=== PATIENT | male | born 1985 | race Hispanic/Latino ===

== ENCOUNTER 2018-06-20 17:12 | Inpatient (IN) | payer MEDICAID, OTHER ==
[2018-06-20 17:12] VITALS: BMI 23.7
--- NOTE | 2018-06-20 18:28 | C.PDOC ---
History Of Present Illness 33 year old male presents to the ED requesting heroin detox. Patient states his last use was at 0700 today. He denies suicidal/homicidal ideation and does not have any active physical complaints at this time. Ambulatory, not in any a pparent distress. Time Seen by Provider: 06/20/18 18:06 Chief Complaint (Nursing): Substance Abuse History Per: Patient History/Exam Limitations: no limitations Onset/Duration Of Symptoms: Hrs Current Symptoms Are (Timing): Still Present Suicide/Self Injury Attempted (Context): None Modifying Factor(s): Other (heroin) Severity: None Associated Symptoms: denies: Suicidal Thoughts, Suicidal Plan Additional History Per: Patient Past Medical History Reviewed: Historical Data, Nursing Documentation, Vital Signs Vital Signs: Last Vital Signs Temp 98 F 06/20/18 17:37 Pulse 92 H 06/20/18 17:37 Resp 18 06/20/18 17:37 BP 103/71 06/20/18 17:37 Pulse Ox 96 06/20/18 17:37 - Medical History PMH: Bipolar Disorder, Cardia Arrhythmia (skip beat), Depression, Seizures (New onset on admission) Denies: Anemia, Asthma, Bronchitis, CHF, COPD, Diabetes, Emphysema, Hepatitis, HIV, HTN, Hypercholesterolemia, Mitral Valve Prolapse, Peripheral Edema, Pneumonia, Chronic Kidney Disease, Sexually Transmitted Disease, Sleep Apnea Surgical History: No Surg Hx Denies: Coronary Stent, Pacemaker - [facility] Procedures CLOSURE SKIN & SUBCUTANEOUS NEC (11/07/13) INJECT/INFUSE NEC (11/07/13) PSYCHIA INTERV/EVAL NEC (11/07/13) Family History: States: Unknown Family Hx - Social History Hx Tobacco Use: Yes (10 per day) Hx Alcohol Use: No Hx Substance Use: Yes - Immunization History Hx Tetanus Toxoid Vaccination: No Hx Influenza Vaccination: No Hx Pneumococcal Vaccination: No Review Of Systems Psych: Positive for: Other (heroin detox ). Negative for: Suicidal ideation Physical Exam - Physical Exam Appears: Non-toxic, No Acute Distress Skin: Normal Color, Warm, Dry Head: Atraumatic, Normacephalic Eye(s): bilateral: PERRL Nose: No Flaring, No Discharge Oral Mucosa: Moist Neck: Trachea Midline, No Midline Cervical Tenderness, No Paracervical Tenderness, No Step Off Deformity, Supple Chest: Symmetrical, No Deformity, No Tenderness Cardiovascular: Rhythm Regular, No Murmur, No JVD Respiratory: No Decreased Breath Sounds, No Accessory Muscle Use, No Rales, No Rhonchi, No Stridor, No Wheezing Gastrointestinal/Abdominal: Soft, No Tenderness, No Distention, No Guarding Back: No Vertebral Tenderness, No Paraspinal Tenderness Extremity: Normal ROM, No Tenderness, Capillary Refill (less than 2 seconds ) Neurological/Psych: Oriented x3, Normal Speech, Normal Cognition ED Course And Treatment - Laboratory Results Result Diagrams: 06/20/18 21:52 06/20/18 21:52 Lab Interpretation: No Acute Changes O2 Sat by Pulse Oximetry: 96 (on RA) Pulse Ox Interpretation: Normal Progress Note: Pt was seen by police worker, case discussed with , admission to detox accepted. Pt remained stable during the ED evaluation. Disposition - Disposition Disposition: HOSPITALIZED Disposition Time: 22:28 Condition: STABLE Forms: [facility] ([facility]) - Clinical Impression Clinical Impression: Opioid dependence - PA / [employer] / Resident Statement MD/DO has reviewed & agrees with the documentation as recorded. - Scribe Statement The provider has reviewed the documentation as recorded by the Scribe (Kanwal Hartman) All medical record entries made by the Scribe were at my direction and personally dictated by me. I have reviewed the chart and agree that the record accurately reflects my personal performance of the history, physical exam, medical decision making, and the department course for this patient. I have also personally directed, reviewed, and agree with the discharge instructions and disposition.
[2018-06-20 22:05] LABS: URINE BILIRUBIN NEGATIVE (NEGATIVE); URINE BLOOD 1+ (NEGATIVE); URINE CLARITY Hazy (Clear); URINE COLOR Yellow (YELLOW); URINE GLUCOSE (UA) NORMAL (Normal); URINE LEUKOCYTE ESTERASE NEG Leu/uL (Negative); URINE PROTEIN NEGATIVE (NEGATIVE); URINE UROBILINOGEN NORMAL mg/dL (0.2-1.0)
[2018-06-20 22:06] LABS: BASO % 0.7 % (0.0-2.0); EOS # 0.2 K/uL (0.0-0.7); EOS % 2.2 % (0.0-4.0); HEMOGLOBIN 12.3 g/dL (12.0-18.0); LYMPH # 1.7 K/uL (1.0-4.3); LYMPH % 23.9 % (20.0-40.0); MEAN CELL VOLUME 82.7 fL (80.0-94.0); MEAN CORPUSCULAR HGB CONC 32.7 g/dL (33.0-37.0); MEAN PLATELET VOLUME 8.1 fL (7.2-11.7); MONO # 0.5 K/uL (0.0-0.8); MONO % 7.4 % (0.0-10.0); NEUT # 4.8 K/uL (1.8-7.0); NEUT % 65.8 % (50.0-75.0); RBC 4.55 Mil/uL (4.40-5.90); RED CELL DISTRIBUTION WIDTH 15.9 % (11.5-14.5); WHITE BLOOD COUNT 7.3 K/uL (4.8-10.8)
[2018-06-20 22:16] LABS: BARBITURATES, UR NEGATIVE (NEGATIVE); BENZODIAZEPINES, UR NEGATIVE (NEGATIVE); OPIATES, UR POSITIVE (NEGATIVE); PHENCYCLIDINE, UR NEGATIVE (NEGATIVE)
[2018-06-20 22:18] LABS: ALB/GLOB RATIO 1.2 (1.0-2.1); ALBUMIN 4.3 g/dL (3.5-5.0); ALT/SGPT 55 U/L (21-72); AST/SGOT 32 U/L (17-59); BLOOD UREA NITROGEN 11 mg/dL (9-20); CALCIUM 9.1 mg/dl (8.6-10.4); GFR NON-AFRICAN AMERICAN > 60
--- NOTE | 2018-06-21 00:53 | PCM.BM ---
<Leigh Ann Martinez - Last Filed: 06/21/18 00:51> Treatment Plan Problems - Problems identified on initial assessmt Denial Date Initiated: 06/21/18 Time Initiated: 00:52 Assessment reference: NA Status: Active Defensive Coping Date Initiated: 06/21/18 Time Initiated: 00:52 Assessment reference: NA Status: Active Hopelessness Date Initiated: 06/21/18 Time Initiated: 00:52 Assessment reference: NA Status: Active Treatment assets and liabiliti Patient Assests: ADL independent Patient Liabilities: substance abuse - Milieu Protocol Maintain good personal hygiene: daily Encourage regular showers, daily Remind patient to perform daily oral care, daily Assist patient to perform ADL's Maintain personal safety: every shift Educate patient to report safety concerns to staff, every shift Monitor environment for contraband/sharps Medication safety: Monitor for expected outcome, potential side effects: every shift, Assess barriers to learning: every shift, Assess readiness for medication education: every shift <Georgette Waggoner - Last Filed: 06/24/18 23:28> - Diagnosis (1) Opioid dependence Status: Acute Interventions: 06/22/18 13:28 * Assess 7x/week regarding severity of withdrawal * Educate regarding risks, benefits, side effects and alternatives of medications * Use Motivational Interviewing for abstinence * Use CBT for relapse prevention * Medication management for withdrawal symptoms * Encourage medication assisted treatment *
--- NOTE | 2018-06-21 11:28 | PCM.PSYCH ---
Initial Psychiatric Evaluation - Initial Psychiatric Evaluation Type of Admission: Voluntary Legal Status: Capacity History of Present Illness and Precipitating Events: 33 yo male pt currently unemployed and living with his mother in [place] presents for detox from heroin. Pt has been using 20 bags a day for the past 3 years on and off. The longest he has been clean was 5 months, without using a detox or rehab program. He continues to use drugs due to social influences he says. He has previously attended a rehab/detox program and attended NA meetings. He claims he found the suboxone was not holding him over during detox but he has not used it for m aintenance. Pt admits to smoking 1 ppd, smoking marijuana occasionally, and drinking alcohol ocassionally. Psych Hx: Pt diagnosed with severe anxiety and insomnia. His primary care doctor, Dr. Erich Galeana in [place], prescribed him Xanax 1mg 3x a day which he has been taking for the past year. He had been overusing at times. No seizures. Pt agrees to come off the sedative hypnotics as well. Pt currently denies any SI, HI. PMHx: none PSHx: none Family hx: anxiety Current Medications: Active Medications Generic Name Dose Route Start Last Admin Trade Name Freq PRN Reason Stop Dose Admin Al Hydrox/Mg Hydrox/Simethicone 30 ml 06/21/18 09:49 Maalox 30 Ml PO TID PRN Indigestion / Heartburn Clonidine HCl 0.1 mg 06/21/18 09:49 Catapres PO Q4 PRN COWS Score More or Equal to 5 Hydroxyzine HCl 50 mg 06/21/18 09:55 Atarax PO Q6H PRN Anxiety Ibuprofen 600 mg 06/21/18 09:55 Motrin Tab PO Q6H PRN Pain, moderate (4-7) Loperamide HCl 2 mg 06/21/18 09:49 Imodium PO Q8 PRN Diarrhea Methadone HCl 20 mg 06/21/18 10:00 06/21/18 10:26 Methadone PO 06/26/18 09:59 20 mg Q24H ALDAIR Administration Taper Ondansetron HCl 4 mg 06/21/18 09:49 Zofran Tab PO Q8 PRN Nausea/Vomiting Trazodone HCl 100 mg 06/21/18 09:55 Desyrel PO HS PRN Insomnia Past Psychiatric History - Past Psychiatric History Previous Treatment History: Intensive Outpatient Pertinent Medical Hx (Current Medical&Sleep Prob, Allergies): Allergies Allergy/AdvReac Type Severity Reaction Status Date / Time No Known Allergies Allergy Verified 10/16/17 20:41 QUEtiapine [SEROquel] 1 tab PO DAILY 11/05/17 ALPRAZolam [Xanax] 1 mg PO TID 11/06/17 QUEtiapine [SEROquel] 100 mg PO HS 06/20/18 Review of Systems - Neurological Neurological: UNREMARKABLE - Psychiatric Psychiatric: Anhedonia, Anxiety, Difficulty Concentrating, Mood Swings, Panic Attacks. absent: Hallucinations, Homicidal Ideation, Paranoia, Suicidal Ideation Mental Status Examination - Personal Presentation Personal Presentation: Looks stated age - Affect Affect: Constricted - Motor Activity Motor Activity: Calm - Reliability in Providing Information Reliability in Providing Information: Good - Speech Speech: Organized - Mood Mood: Depressed (mild), Anxious - Formal Thought Process Formal Thought Process: No Impairment - Cognitive Functions Orientation: Person, Place, Situation, Time Sensorium: Alert Attention/Concentration: Easily distracted Estimate of Intelligence: Average Judgement: Intact, as evidence by: Insight regarding need for hospitalization Memory: Recent intact, as evidence by: Ability to recall events of the day, Remote intact, as evidenced by: Abilit to recall sig. 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 All risks, benefits and alternatives of the meds discussed and the pt agreed and understood. Attend groups and activities Supportive therapy and psychoeducation PR for abstinence CBT for relapse prevention Encourage MAT Refer to rehab or IOP, and self-help groups Teach healthy lifestyle methods, i.e. diet, exercise, meditation Smoking cessation with PR Nicotine patch if needed 33 min Projected ELOS: 4-5 days Prognosis: good w treatment - Smoking Cessation Smoking Cessation Initiated: Yes
[2018-06-21] MEDS: Aluminum Hydroxide/Magnesium Hydroxide Susp (30 mL) PO PRN (17:03)
[2018-06-22] MEDS: Aluminum Hydroxide/Magnesium Hydroxide Susp (30 mL) PO PRN ×2 (11:31→17:45)
--- NOTE | 2018-06-22 12:06 | PCM.PYCHPN ---
Psychiatric Progress Note - Psychiatric Progress Note Patient seen today, length of contact: 18 min Patient Chief Complaint: "Still sick" Problems Identified/Issues Discussed: The pt is seen, chart reviewed, case is discussed with staff. The pt is compliant with medications and reports no side-effects. Symptoms are improving but needs more time to stabilize and to avoid relapse. Pt attends groups and activities. Support given, psycho-education provided. After care discussed. Medication Change: Yes (detox changes daily) Medical Record Reviewed: Yes Mental Status Examination - Cognitive Function Orientation: Person, Place, Situation, Time Memory: Intact Attention: WNL Concentration: Poor Association: WNL Fund of Knowledge: WNL - Mood Mood: Depressed (mild), Anxious - Affect Affect: Constricted - Speech Speech: Appropriate - Formal Thought Process Formal Thought Process: No Impairment - Suicidal Ideation Suicidal Ideation: No - Homicidal Ideation Homicidal Ideation: No Goal/Treatment Plan - Goal/Treatment Plan Need for Continued Stay: Discharge may exacerbated symptoms, Severe functional impairment Progress Toward Problem(s) and Goals/Treatment Plan: Taper with Methadone and librium Zoloft for anxiety disorders Gabapentin for augmentation As needed medications Maalox, Clonidine, Atarax, Motrin, Imodium, Zofran, and Trazodone. All risks, benefits and alternatives of the meds discussed and the pt agreed and understood. Attend groups and activities Supportive therapy and psychoeducation NV for abstinence CBT for relapse prevention Encourage MAT Refer to rehab or IOP, and self-help groups Teach healthy lifestyle methods, i.e. diet, exercise, meditation Smoking cessation with NV Nicotine patch if needed Estimated Date of D/C: 06/25/18
[2018-06-23] MEDS: Aluminum Hydroxide/Magnesium Hydroxide Susp (30 mL) PO PRN (10:34)
[2018-06-24] MEDS: Aluminum Hydroxide/Magnesium Hydroxide Susp (30 mL) PO PRN ×2 (07:56→21:27)
[2018-06-24 15:40] VITALS: RESP 18
--- NOTE | 2018-06-24 23:28 | PCM.PYCHPN ---
Psychiatric Progress Note - Psychiatric Progress Note Patient seen today, length of contact: 17 min Patient Chief Complaint: "I'm withdrawing" Problems Identified/Issues Discussed: The pt is seen, chart reviewed, case is discussed with staff. Support and psychoeducation given, CBT and OH used briefly The pt is improving slowly but needs more time due to severity of symptoms and relapse risk. He is given additional doses due to breakthru sxs No SEs from medications, risks discussed. After care discussed Medication Change: Yes (detox changes daily) Medical Record Reviewed: Yes Mental Status Examination - Cognitive Function Orientation: Person, Place, Situation, Time Memory: Intact Attention: WNL Concentration: Poor Association: WNL Fund of Knowledge: WNL - Mood Mood: Depressed (mild), Anxious - Affect Affect: Constricted - Speech Speech: Appropriate - Formal Thought Process Formal Thought Process: No Impairment - Suicidal Ideation Suicidal Ideation: No - Homicidal Ideation Homicidal Ideation: No Goal/Treatment Plan - Goal/Treatment Plan Need for Continued Stay: Discharge may exacerbated symptoms, Severe functional impairment Progress Toward Problem(s) and Goals/Treatment Plan: Taper with Methadone and librium Zoloft for anxiety disorders Gabapentin for augmentation As needed medications Maalox, Clonidine, Atarax, Motrin, Imodium, Zofran, and Trazodone. All risks, benefits and alternatives of the meds discussed and the pt agreed and understood. Attend groups and activities Supportive therapy and psychoeducation [place] for abstinence CBT for relapse prevention Encourage MAT Refer to rehab or IOP, and self-help groups Teach healthy lifestyle methods, i.e. diet, exercise, meditation Smoking cessation with OH Nicotine patch if needed Estimated Date of D/C: 06/25/18
--- NOTE | 2018-06-24 23:28 | PCM.PYCHPN ---
Psychiatric Progress Note - Psychiatric Progress Note Patient seen today, length of contact: 17 min Patient Chief Complaint: "I'm withdrawing" Problems Identified/Issues Discussed: The pt is seen, chart reviewed, case is discussed with staff. Support and psychoeducation given, CBT and LA used briefly The pt is improving slowly but needs more time due to severity of symptoms and relapse risk. He is given additional doses due to breakthru sxs No SEs from medications, risks discussed. After care discussed Medication Change: Yes (detox changes daily) Medical Record Reviewed: Yes Mental Status Examination - Cognitive Function Orientation: Person, Place, Situation, Time Memory: Intact Attention: WNL Concentration: Poor Association: WNL Fund of Knowledge: WNL - Mood Mood: Depressed (mild), Anxious - Affect Affect: Constricted - Speech Speech: Appropriate - Formal Thought Process Formal Thought Process: No Impairment - Suicidal Ideation Suicidal Ideation: No - Homicidal Ideation Homicidal Ideation: No Goal/Treatment Plan - Goal/Treatment Plan Need for Continued Stay: Discharge may exacerbated symptoms, Severe functional impairment Progress Toward Problem(s) and Goals/Treatment Plan: Taper with Methadone and librium Zoloft for anxiety disorders Gabapentin for augmentation As needed medications Maalox, Clonidine, Atarax, Motrin, Imodium, Zofran, and Trazodone. All risks, benefits and alternatives of the meds discussed and the pt agreed and understood. Attend groups and activities Supportive therapy and psychoeducation LA for abstinence CBT for relapse prevention Encourage MAT Refer to rehab or IOP, and self-help groups Teach healthy lifestyle methods, i.e. diet, exercise, meditation Smoking cessation with LA Nicotine patch if needed Estimated Date of D/C: 06/25/18
[2018-06-25 06:05] VITALS: TEMP 97.9; O2SAT 100
[2018-06-25 08:19] VITALS: BP 111/73; PULSE 54
--- NOTE | 2018-06-25 09:00 | PCM.PYCHDC ---
Mental Status Examination - Mental Status Examination Orientation: Person Discharge Summary - Discharge Note Consultations:: List each consultation separately and include: 1. Reason for request. 2. Findings. 3. Follow-up Summary of Hospital Course include:: 1. Description of specific treatment plan utilized for patients during their course of treatmen. 2. Summarize the time- course for resolution of acute symptoms and/or regressed behaviors. 3. Describe issues identified and worked on during hospitalization. 4. Describe medication utilized. 5. Describe medical problems identified and treated. 6. Reassessment of suicide risk Summary of Hospital Course: 33 yo male pt currently unemployed and living with his mother in [place] presents for detox from heroin. Pt has been using 20 bags a day for the past 3 years on and off. The longest he has been clean was 5 months, without using a detox or rehab program. He continues to use drugs due to social influences he says. He has previously attended a rehab/detox program and attended NA meetings. He claims he found the suboxone was not holding him over during detox but he has not used it for maintenance. Pt admits to smoking 1 ppd, smoking marijuana occasionally, and drinking alcohol ocassionally. Psych Hx: Pt diagnosed with severe anxiety and insomnia. His primary care doctor, Dr. Erich Galeana in [place], prescribed him Xanax 1mg 3x a day which he has been taking for the past year. He had been overusing at times. No seizures. Pt agrees to come off the sedative hypnotics as well. Pt currently denies any SI, HI. PMHx: none PSHx: none Family hx: anxiety He will go to [facility] MAT - Diagnosis (1) Opioid dependence Current Visit: Yes Status: Acute - Final Diagnosis (DSM 5) Condition upon Discharge: STABLE Disposition: HOME/ ROUTINE Follow-up Treatment Plan: Taper with Methadone and librium Zoloft for anxiety disorders Gabapentin for augmentation As needed medications Maalox, Clonidine, Atarax, Motrin, Imodium, Zofran, and Trazodone. All risks, benefits and alternatives of the meds discussed and the pt agreed and understood. Attend groups and activities Supportive therapy and psychoeducation [place] for abstinence CBT for relapse prevention Encourage MAT Refer to rehab or IOP, and self-help groups Teach healthy lifestyle methods, i.e. diet, exercise, meditation Smoking cessation with TN Nicotine patch if needed Prescriptions/Medication Reconciliation: Gabapentin [Neurontin] 300 mg PO TID #90 cap Mirtazapine [Remeron] 15 mg PO HS #30 tab Sertraline [Zoloft] 50 mg PO DAILY #30 tab
== END 2018-06-25 09:45 | disposition home or self-care (01) | DRG 772 ==
LOC: C.ER 17:12 → C.9E 22:27 → C.7D 23:00
PROVIDERS: ADMIT Psychiatry & Neurology Psychiatry; ATTEND Psychiatry & Neurology Psychiatry
PROC: HZ2ZZZZ Detoxification Services for Substance Abuse Treatment (ICD-10-PCS; principal; 2018-06-20)
PROC: HZ46ZZZ Group Counseling for Substance Abuse Treatment, Psychoeducation (ICD-10-PCS; 2018-06-20)
PROC: HZ80ZZZ Medication Management for Substance Abuse Treatment, Nicotine Replacement (ICD-10-PCS; 2018-06-20)
PROC: GZ3ZZZZ Medication Management (ICD-10-PCS; 2018-06-20)
PROC: HZ59ZZZ Individual Psychotherapy for Substance Abuse Treatment, Supportive (ICD-10-PCS; 2018-06-20)
DX: F11.23 Opioid dependence with withdrawal (principal); F13.239 Sedative, hypnotic or anxiolytic dependence with withdrawal, unspecified; F12.90 Cannabis use, unspecified, uncomplicated; F17.210 Nicotine dependence, cigarettes, uncomplicated; F41.1 Generalized anxiety disorder; F31.9 Bipolar disorder, unspecified; R56.9 Unspecified convulsions; G47.00 Insomnia, unspecified